=== PATIENT | male | born 1965 | race Caucasian/White ===

== ENCOUNTER 2017-03-11 14:58 | Emergency (ER) | payer BC ==
[~2017-03-11] VITALS: Ht 182.9 cm; Wt 118.2 kg
[2017-03-11] MEDS ORDERED: SERTRALINE HYDR50 MG PO (15:04)
[2017-03-11] MEDS ORDERED: ZYRTEC ALLERGY10 MG PO (15:04)
[2017-03-11] MEDS ORDERED: SYNTHROID25 MCG PO (15:04)
[2017-03-11 16:20] VITALS: BP 132/87
== END 2017-03-11 16:13 | disposition home or self-care (01) ==
LOC: ED 14:58
DX: S20.212A Contusion of left front wall of thorax, initial encounter (principal); V48.3XXA Unspecified car occupant injured in noncollision transport accident in nontraffic accident, initial encounter

== ENCOUNTER → 2020-08-20 | Day surgery (SDC) | payer BC ==
[~2020-08-20] MED LIST: SERTRALINE HYDR50 MG PO; SYNTHROID25 MCG PO; ZYRTEC ALLERGY10 MG PO
== END ==
LOC: MSO 08:57
DX: Z12.11 Encounter for screening for malignant neoplasm of colon (principal); K62.1 Rectal polyp; Z86.010 Personal history of colon polyps; Z91.040 Latex allergy status; Z88.1 Allergy status to other antibiotic agents; K21.9 Gastro-esophageal reflux disease without esophagitis; E66.9 Obesity, unspecified; G47.33 Obstructive sleep apnea (adult) (pediatric); F17.220 Nicotine dependence, chewing tobacco, uncomplicated; E03.9 Hypothyroidism, unspecified
CPT/HCPCS: 00811; J2704; J7120